=== PATIENT | male | born 1975 | race Caucasian/White ===

== ENCOUNTER 2020-06-08 06:24 | Day surgery (SDC) | payer OTHER ==
[2020-06-08] MEDS ORDERED: Sodium Chloride 0.9% 1,000 ML IV SCH (07:00)
[2020-06-08] MEDS ORDERED: Midazolam 1 MG/ML 2 ML SDV ONE (07:20)
[2020-06-08] MEDS ORDERED: Propofol 200 MG/20 ML SDV ONE (07:20)
[2020-06-08] MEDS ORDERED: fentaNYL 100 MCG/2 ML SDV ONE (07:20)
--- NOTE | 2020-06-08 11:35 | OR ---
DATE OF PROCEDURE: 06/08/2020 SURGEON: Ryan Webster MD PROCEDURE: Colonoscopy. FINDINGS: Normal colonoscopy. PREOPERATIVE DIAGNOSIS: Abdominal pain/diarrhea. POSTOPERATIVE DIAGNOSIS: Abdominal pain/diarrhea. RISKS: Risks, benefits, alternatives, and limitations including, but not limited to infection, bleeding, and perforation were explained to the patient, who wished to proceed. PROCEDURE IN DETAIL: The patient was placed in left lateral decubitus position. Digital rectal exam was performed without abnormality. Scope was introduced atraumatically to the ileocecal valve, and the terminal ileum was cannulated. Throughout the entire procedure, there was no evidence of inflammation. No colitis. No old or new blood. No diverticulosis. No polyps. No abnormalities on retroflexion. The patient tolerated the procedure well. Ryan Webster MD /[id number]
== END 2020-06-08 09:25 | disposition home or self-care (01) ==
LOC: JP.SDS 06:24
PROVIDERS: ATTEND Surgery
DX: R10.9 Unspecified abdominal pain (principal); R19.7 Diarrhea, unspecified; E66.9 Obesity, unspecified; Z68.33 Body mass index [BMI] 33.0-33.9, adult
CPT/HCPCS: 45378; J2250; J2704; J3010; J7030